=== PATIENT | male | born 1950 | race Caucasian/White ===

== ENCOUNTER 2023-10-22 13:11 | Emergency (ER) | payer MEDICARE, SELFPAY ==
[2023-10-22] VITALS (9 sets, daily range): BP systolic 99–123; BP diastolic 50–66; PULSE 50–66; RESP 13–19; TEMP 36.8–37.1; O2SAT 90–96; BMI 29.8
--- NOTE | 2023-10-22 13:22 | ECG_ITS ---
APPROVED REPORT Exam: Resting ECG HR:68 bpm ECG Measurements Heart Rate 68 AXES SC 173 P -21 QRSd 118 QRS 6 QT 417 T -50 QTc 434 Conclusion SINUS RHYTHM POSSIBLE LATERAL MYOCARDIAL INFARCTION , OF INDETERMINATE AGE [30 ms Q WAVE IN I/aVL/V5/V6] ABNORMAL ECG UNCONFIRMED REPORT Electronically signed by : GODWIN CODY, 10/22/2023 16:28:05
[2023-10-22 14:01] LABS: Basophils % 0.4 % (0.1-2.0); Eosinophils # 0.1 K/mm3 (0.0-0.4); Eosinophils % 1.3 % (0.1-12.0); Hemoglobin 13.7 g/dL (14.1-18.0); Lymphocytes # 1.2 K/mm3 (0.7-4.5); Lymphocytes % 11.6 % (10-50); Mean Corpuscular HGB Conc 32.6 g/dL (31.8-35.4); Mean Corpuscular Hemoglobin 27.4 pg (27.0-31.2); Mean Platelet Volume 7.7 fl (7.4-10.4); Monocytes # 0.6 K/mm3 (0.1-1.0); Monocytes % 5.8 % (1.7-9.3); Neutrophils # 8.2 K/mm3 (1.8-7.8); Platelet Count 331 K/mm3 (142-424); Red Blood Count 5.01 M/mm3 (4.60-6.20); Red Cell Distribution Width 16.3 % (11.5-17.5); White Blood Count 10.2 K/mm3 (4.8-10.8)
--- NOTE | 2023-10-22 14:01 | [facility].EDGENADL ---
Discharge Plan Disposition Patient Disposition: Home, Self-Care Condition: Good Referrals Follow up/Referrals: Ellen Tracy MD [Primary Care Provider] - See instructions Activity Restrictions/Add. Instructions Additional Instructions/Restrictions: You have been evaluated in the ED for your complaints. You may follow-up with your PCP in the next 3 to 5 days. Please return to ED for any new or worsening symptoms. As discussed, please drink plenty of water over the next few days. Please follow-up with your primary care provider on Wednesday for repeat creatinine check. Please continue take your blood pressure medications as prescribed. Clinical Impressions Clinical Impression: Hypotension, DAVID (acute kidney injury), Light-headed Discharge ED Provider: Olegario Duran General Adult HPI General Chief complaint: Recheck/Abnormal Lab/Rx Stated complaint: low blood pressure Time Seen by Provider: 10/22/23 13:37 Mode of Arrival: Ambulatory Source of Information: Patient Limitations: No Limitations Description of Symptoms (Recalled from ER Triage Doc. by RN): hypotension,lightheadedness, History of Present Illness HPI narrative: 73-year-old male with past medical history significant for hypertension and DM2, on losartan 20 mg daily, presents today for evaluation concerning lightheadedness and hypotension. Patient states that earlier today he felt lightheaded and checked his blood pressure on his son's blood pressure machine and it was noted to be 80/57. He was admonished to come to the ED for further management. He does note that this morning when he took his losartan he believes that he took 2 pills instead of 1 accidentally. he denies having any chest pain, shortness of breath, nausea, vomiting, abdominal pain, diarrhea or any other associated symptoms at this time. States that his symptoms are much improved. Related Data Allergies Allergy/AdvReac Type Severity Reaction Status Date / Time No Known Allergies Allergy Verified 10/22/23 13:50 [facility] Disclaimer: The information contained in this section may have been updated after the patient was seen, as this information can be updated by other users. Social History (Updated 10/22/23 @ 16:14 by Rajiv Pacheco DO) Smoking Status: Never smoker alcohol intake: never current occupational status: retired Travel in the last 8 weeks: None ROS Obtained: Yes All systems reviewed & no additional complaints except as documented Physical Exam General General appearance: alert and in no apparent distress Head Head exam: atraumatic and normocephalic Eye Eye exam: Present normal appearance, PERRL and EOMI ENT ENT exam: Present normal oropharynx and mucous membranes moist Neck Neck exam: Present full ROM; Absent meningismus Respiratory Respiratory exam: Absent respiratory distress, wheezes, stridor or accessory muscle use Cardiovascular Cardiovascular exam: Present normal rhythm Abdominal Exam Abdominal exam: Present soft; Absent distention, tenderness, guarding, rebound or rigidity Neurological Exam Neurological exam: Present alert, oriented X3 and CN II-XII intact; Absent motor sensory deficit Psychiatric Psychiatric exam: Present normal affect and normal mood Skin Skin exam: Present warm and dry Medical Decision Making Medical Records Medical records reviewed: Yes I reviewed the patient's medical records. Adis Inquiry Pt receiving controlled substance: No Adis was queried for this patient: No Vital Signs: 10/22/23 13:13 10/22/23 13:35 10/22/23 14:00 Temperature 98.7 F Temperature Source Oral Pulse Rate 65 61 Pulse Rate [Right] 63 Respiratory Rate 18 19 14 Blood Pressure 99/52 L 101/56 L Blood Pressure [Right Arm] 119/50 L Blood Pressure Mean 65 Blood Pressure Mean [Right Arm] 73 02 Sat by Pulse Oximetry 91 L 93 L 90 L Oxygen Delivery Method Room Air 10/22/23 14:06 10/22/23 14:30 10/22/23 15:00 Temperature Temperature Source Pulse Rate 66 59 L 50 L Pulse Rate [Right] Respiratory Rate 19 16 13 Blood Pressure 115/57 L 118/54 L 123/58 L Blood Pressure [Right Arm] Blood Pressure Mean 67 74 76 Blood Pressure Mean [Right Arm] 02 Sat by Pulse Oximetry 92 L 91 L 92 L Oxygen Delivery Method 10/22/23 15:10 Temperature Temperature Source Pulse Rate Pulse Rate [Right] Respiratory Rate Blood Pressure 120/64 Blood Pressure [Right Arm] Blood Pressure Mean 83 Blood Pressure Mean [Right Arm] 02 Sat by Pulse Oximetry Oxygen Delivery Method Lab Data Lab Results 10/22/23 13:20: WBC 10.2, RBC 5.01, Hgb 13.7 L, Hct 42.0, MCV 84.0, MCH 27.4, MCHC 32.6, RDW 16.3, Plt Count 331, MPV 7.7, Neut % (Auto) 81.0 H, Lymph % (Auto) 11.6, Crawford % (Auto) 5.8, Eos % (Auto) 1.3, Baso % (Auto) 0.4, Neut # (Auto) 8.2 H, Lymph # (Auto) 1.2, Crawford # (Auto) 0.6, Eos # (Auto) 0.1, Baso # (Auto) 0.0, Sodium 137, Potassium 4.5, Chloride 103, Carbon Dioxide 24, Anion Gap 14.5, BUN 34 H, Creatinine 1.50 H, Estimated Creat Clear 62, Estimated GFR 46 L, Est GFR ( Amer) 56 L, Glucose 265 H, Calcium 9.5, Total Bilirubin 1.1, AST 39, ALT 28, Alkaline Phosphatase 70, Troponin I 0.01, Total Protein 7.6, Albumin 4.5, Globulin 3.1, Albumin/Globulin Ratio 1.5 10/22/23 15:20: Creatinine 1.60 H, Estimated Creat Clear 58, Estimated GFR 43 L, Est GFR ( Amer) 52 L 10/22/23 15:50: Sodium 139, Potassium 4.3, Chloride 104, Carbon Dioxide 28, Anion Gap 11.3, BUN 35 H, Creatinine 1.50 H, Estimated Creat Clear 62, Estimated GFR 46 L, Est GFR ( Amer) 56 L, Glucose 196 H D, Calcium 9.4 10/22/23 13:20 10/22/23 15:50 Orders (Tests/Meds): ED MEDICATIONS Discontinued Medications Generic Name Dose Route Start Last Admin Trade Name Freq PRN Reason Stop Dose Admin Lactated Ringer's 1,000 mls @ 999 mls/hr 10/22/23 14:08 10/22/23 14:10 Lactated Ringer's 1000 Ml Bag IV 10/22/23 15:08 999 mls/hr .Q1H1M ONE Administration ORDERS Category Date Time Status BMP [Basic Metabolic Panel] Stat Lab 10/22/23 15:50 Completed Complete Blood Count Auto Diff Stat Lab 10/22/23 13:20 Completed Comprehensive Metabolic Panel Stat Lab 10/22/23 13:20 Completed Creatinine,Serum Stat Lab 10/22/23 15:20 Completed Troponin I Q3H Lab 10/22/23 17:00 Ordered Troponin I Q3H Lab 10/22/23 20:00 Ordered Troponin I Stat Lab 10/22/23 13:20 Completed HEART Score History (anamnesis): Slightly suspicious ECG: Normal Age: >65 years Risk factors: 1-2 risk factors Troponin: </= normal limit HEART Score: 3 Medical Decision Narrative: 73-year-old male with past medical history significant for hypertension and DM2, on losartan 20 mg daily, presents today for evaluation concerning lightheadedness and hypotension. Patient states that earlier today he felt lightheaded and checked his blood pressure on his son's blood pressure machine and it was noted to be 80/57. He was admonished to come to the ED for further management. He does note that this morning when he took his losartan he believes that he took 2 pills instead of 1 accidentally. On assessment he was hemodynamically stable and in no acute distress. Afebrile. His chest was clear to auscultation bilaterally. His abdomen was soft nondistended nontender palpation. No peripheral edema noted. Blood pressure was 115/57 at bedside with MAP of 67. Differential diagnoses include not limited to medication effect, ACS, electrolyte disturbance, dysrhythmia, dehydration, among others. EKG was personally checked by me and was remarkable for normal sinus rhythm with a rate of 68 bpm. There were no ischemic changes. His creatinine today was elevated at 1.5. No elevation in WBC at 10.2. Troponin less than 0.01. Repeat creatinine after 1 L of IV fluids was 1.6. I did order for a repeat BMP to assess the validity of patient's creatinine, currently pending at this time. I did reassess patient who remained hemodynamically stable and in no acute distress. He was able to ambulate without difficulty and maintain his blood pressures. Asymptomatic at this time. I discussed ED workup and current results. BMP has resulted and patient's repeat creatinine was 1.5. I reassessed patient and had shared decision-making discussion and decision was made for discharge with follow-up with PCP on Wednesday for repeat creatinine check. I discussed with patient that he would need to take in plenty of water over the next few days to further assist with bringing his creatinine level down. Also provided him with strict return ED precautions. He verbalized understanding and agreement with plan. Subsequently discharged. Critical Care Critical Care Time Critical Care Time: No
[2023-10-22 14:05] LABS: Alanine Aminotransferase 28 U/L (12-78); Albumin Level 4.5 g/dl (3.5-5.0); Albumin/Globulin Ratio 1.5 (1.1-1.8); Alkaline Phosphatase 70 U/L (38-126); Anion Gap 14.5 mEq/L (5-15); Aspartate Amino Transferase 39 U/L (17-59); Bilirubin,Total 1.1 mg/dl (0.2-1.3); Blood Urea Nitrogen 34 mg/dl (9-20); Calcium 9.5 mg/dl (8.4-10.2); Carbon Dioxide 24 mmol/L (22.0-30.0); Chloride 103 mmol/L (98-107); Creatinine Clearance Estimated 62 mL/min (50-200); Estimated Glomerular Filt Rate 46 ml/min (>60); GFR (African American) 56 ML/MIN (>60); Globulin 3.1 g/dL (1.3-3.2); Glucose 265 mg/dl (74-100); Potassium 4.5 mmoL/L (3.5-5.1); Sodium 137 mmol/L (136-145); Total Protein,Serum 7.6 g/dl (6.3-8.2)
[2023-10-22] MEDS: LACTATED RINGERS 1000ML 1,000 ML 999 ML IV (14:10)
[2023-10-22 14:18] LABS: Troponin I 0.01 ng/ml (0.00-0.034)
[2023-10-22 15:44] LABS: Creatinine Clearance Estimated 58 mL/min (50-200); Estimated Glomerular Filt Rate 43 ml/min (>60); GFR (African American) 52 ML/MIN (>60)
[2023-10-22 16:10] LABS: Chloride 104 mmol/L (98-107); Sodium 139 mmol/L (136-145)
[2023-10-22 16:11] LABS: Potassium 4.3 mmoL/L (3.5-5.1)
[2023-10-22 16:13] LABS: Blood Urea Nitrogen 35 mg/dl (9-20); Creatinine Clearance Estimated 62 mL/min (50-200); Estimated Glomerular Filt Rate 46 ml/min (>60); GFR (African American) 56 ML/MIN (>60)
[2023-10-22 16:14] LABS: Anion Gap 11.3 mEq/L (5-15); Calcium 9.4 mg/dl (8.4-10.2); Carbon Dioxide 28 mmol/L (22.0-30.0); Glucose 196 mg/dl (74-100)
== END 2023-10-22 16:44 | disposition home or self-care (01) ==
PROVIDERS: Emergency Medicine; Emergency Provider Emergency Medicine; PCP Family Medicine
DX: I95.9 Hypotension, unspecified (principal); N17.8 Other acute kidney failure; R42 Dizziness and giddiness; E11.9 Type 2 diabetes mellitus without complications; I10 Essential (primary) hypertension
CPT/HCPCS: 80048; 80053; 82565; 84484; 85025; 93005; 96360; 99284; J7120